=== PATIENT | female | born 1970 | race Asian ===

== ENCOUNTER 2020-04-14 23:40 | Emergency (ER) | payer SELFPAY ==
[~2020-04-14] VITALS: Ht 167.6 cm; Wt 61.2 kg
[2020-04-15] VITALS: BP 146/72
--- NOTE | 2020-04-15 00:01 | Emergency Room Report ---
History of Present Illness General Chief Complaint: Medical Clearance Source: Patient, Law Enforcement Present Illness HPI Disclaimer: Please note that this report is being documented using [employer]AG[employer] technology. This can lead to erroneous entry secondary to incorrect interpretation by the dictating instrument. HPI: 49-year-old female with history of hypothyroid presents in police custody for medical clearance requesting dose of her home medications. Patient is diagnosed with hyperthyroidism and takes 25 mg of Toprol tartrate at night. She is currently under arrest and has not taken her nightly dose. She states she needs it to avoid palpitations. She is awaiting a thyroid scan next week. Currently denies chest pain, palpitations, shortness of breath, nausea, vomiting, diaphoresis, weakness, lightheadedness or other changes in her health. She states she has prescriptions at home but will not be home today as she is under arrest. She does not require new prescriptions according to patient. PMH: Hyperthyroidism. PSH: Reviewed Allergies: Penicillins Social Hx: Reviewed Allergies: Uncoded Allergies: PENICILLIN (Allergy, Unknown, 04/14/20) COVID-19 Screening Contact w/high risk pt: No Experienced COVID-19 symptoms?: No COVID-19 Testing performed PATHOLOGICAL TECHNICIAN: No Patient History Now: No Review of Systems All Other Systems: negative except mentioned in HPI Physical Exam Vital Signs Date Time Temp Pulse Resp B/P (MAP) Pulse Ox O2 Delivery O2 Flow Rate FiO2 04/14/20 23:44 97.9 105 20 146/72 (96) 97 Room Air General: Awake and alert, no acute distress HEENT: NC/AT. EOMI. Neck: Firm and mass over the anterior neck. Nontender. No overlying cellulitis or signs of infection. Nonfluctuant. Cardiovascular: RRR. S1 and S2 normal. No murmur appreciated Resp: Normal work of breathing. No cough, wheezing or crackles appreciated Skin: Intact. No abrasions, laceration or rash over the exposed skin MSK: Normal tone and bulk. Moving all extremities. No obvious deformity. Neuro: Awake and alert. Mentating appropriately. Medical Decision Making Diagnostic Impression: Primary Impression: Medical clearance for incarceration Additional Impression: Medication refill ER Course Is a 49-year-old female with history of hyperthyroidism requesting home medication prior to incarceration. She has no complaints at this time. Initially triaged as slightly tachycardic but improved during my examination. She denies any distress at this time. Will give 25 mg oral metoprolol in the ED. Patient states she has plenty of medication at home and does not require prescription. Otherwise well-appearing. Do not believe she requires emergent labs or imaging at this time. She has good outpatient follow-up and further investigation of her hyperthyroidism. Patient is medically cleared for incarceration. Instructed to follow-up with the MD and specialists as scheduled once released. She understands and agrees with the treatment plan. Last Vital Signs Date Time Temp Pulse Resp B/P (MAP) Pulse Ox O2 Delivery O2 Flow Rate FiO2 04/14/20 23:56 105 146/72 04/14/20 23:44 97.9 20 97 Room Air Disposition: LAW ENF[employer]CEMENT IN CUST Condition: Stable Departure Forms: Residential Clearance Additional Instructions: Follow-up for your scheduled thyroid imaging as planned. Please follow-up with your primary care doctor in the next 1 to 3 days to discuss this emergency department visit and for reevaluation. If you have any new or worsening symptoms please return to the emergency department for reevaluation. Please note that this report is being documented using [employer] technology. This can lead to erroneous entry secondary to incorrect interpretation by the dictating instrument. Ramsey Joseph MD Apr 15, 2020 00:01
--- NOTE | 2020-04-15 00:04 | NUR ---
ER DISCHARGE NOTE: Pt brought in by PADMINI catherine for medical clearance, pt has no complaints. Patient is cleared to be discharged per ERMD, pt is aox4, on room air, with stable vital signs. pt was given dc and prescription instructions, pt was able to verbalize understanding, pt id band and iv site removed without complications. pt is able to ambulate with steady gait. pt took all belongings.
== END 2020-04-15 ==
LOC: EMR 23:59
DX: E05.90 Thyrotoxicosis, unspecified without thyrotoxic crisis or storm (principal); Z76.0 Encounter for issue of repeat prescription; R00.0 Tachycardia, unspecified; Z88.0 Allergy status to penicillin
CPT/HCPCS: 99282